=== PATIENT | male | born 1975 | race African-American/Black ===

== ENCOUNTER 2017-06-22 19:39 | Emergency (ER) | payer BC ==
[2017-06-22 20:00] LABS: #Basophils 0.1 thou/uL (0.0-0.2); #Eosinphils 0.1 thou/uL (0.0-0.7); #Lymphocytes 1.8 thou/uL (1.20-3.40); #Monocytes 0.4 thou/uL (0.11-0.59); #Neutrophils 3.4 thou/uL (1.40-6.50); %Basophils 1.9 % (0.0-1.0); %Eosinophils 2.1 % (0.0-10.0); %Lymphocytes 31.4 % (21.0-51.0); Hematocrit 44.1 % (42.0-52.0); Mean Platelet Volume 7.5 fL (7.4-10.4); Red Blood Cell (RBC) Count 5.18 mill/uL (4.70-6.10); White Blood Cell (WBC) Count 5.7 thou/uL (4.8-10.8)
[2017-06-22 20:22] LABS: ALT (SGPT) 22 U/L (8-55); AST (SGOT) 37 U/L (5-34); Alkaline Phosphatase 49 U/L (40-150); Anion Gap 15 mmol/L (10-20); BUN (Urea Nitrogen) 16 mg/dL (8.9-20.6); Bilirubin, Total 0.8 mg/dL (0.2-1.2); Calc. Creatinine Clearance 0 mL/min (70-130); Calcium 9.8 mg/dL (7.8-10.44); Carbon Dioxide 26 mmol/L (22-29); Chloride 103 mmol/L (98-107); Estimated GFR-MDRD 87; Globulin 4.2 g/dL (2.4-3.5); Protein, Total 8.5 g/dL (6.0-8.3)
[2017-06-22 20:33] LABS: Troponin I Less than 0.010 ng/mL (< 0.028)
== END 2017-06-22 20:53 | disposition home or self-care (01) ==
LOC: ERS 19:39
DX: E87.8 Other disorders of electrolyte and fluid balance, not elsewhere classified (principal); I10 Essential (primary) hypertension; F17.210 Nicotine dependence, cigarettes, uncomplicated
CPT/HCPCS: 36415; 80053; 84484; 85025; 93005

== ENCOUNTER 2017-06-25 16:59 | Emergency (ER) | payer BC | END 2017-06-25 19:48 | disposition home or self-care (01) | LOC: ERS 16:59 | DX: S39.012A Strain of muscle, fascia and tendon of lower back, initial encounter (principal); I10 Essential (primary) hypertension; F17.210 Nicotine dependence, cigarettes, uncomplicated; X50.9XXA Other and unspecified overexertion or strenuous movements or postures, initial encounter | CPT/HCPCS: 99283 ==

== ENCOUNTER 2022-07-19 21:58 | Emergency (ER) | payer BC | END 2022-07-19 22:28 | disposition home or self-care (01) | LOC: ERS 21:58 | DX: I10 Essential (primary) hypertension (principal); F17.210 Nicotine dependence, cigarettes, uncomplicated; Z79.899 Other long term (current) drug therapy | CPT/HCPCS: 99283 ==

== ENCOUNTER 2022-11-13 18:30 | Emergency (ER) | payer BC | END 2022-11-13 21:05 | disposition home or self-care (01) | LOC: ERS 18:30 | DX: M25.562 Pain in left knee (principal) ==

== ENCOUNTER 2023-05-05 01:33 | Emergency (ER) | payer BC ==
[2023-05-05] MEDS ORDERED: Ketorolac Tromethamine 30 MG/ML VIAL ONE (02:45)
== END 2023-05-05 02:59 | disposition home or self-care (01) ==
LOC: ERS 01:33
DX: M76.52 Patellar tendinitis, left knee (principal); M17.12 Unilateral primary osteoarthritis, left knee; I10 Essential (primary) hypertension; F17.210 Nicotine dependence, cigarettes, uncomplicated
CPT/HCPCS: 96372; J1885

== ENCOUNTER 2023-11-13 17:51 | Emergency (ER) | payer BC ==
[2023-11-13] MEDS ORDERED: Ibuprofen 800 MG TAB ONE (19:05)
== END 2023-11-13 20:06 | disposition home or self-care (01) ==
LOC: ERS 17:51
DX: S90.02XA Contusion of left ankle, initial encounter (principal); I10 Essential (primary) hypertension; F17.210 Nicotine dependence, cigarettes, uncomplicated; X58.XXXA Exposure to other specified factors, initial encounter

== ENCOUNTER 2024-03-10 14:26 | Emergency (ER) | payer BC ==
[2024-03-10] MEDS ORDERED: Ketorolac Tromethamine 30 MG (1 mL) VIAL ONE (15:47)
== END 2024-03-10 16:02 | disposition home or self-care (01) ==
LOC: ERS 14:26
DX: M25.561 Pain in right knee (principal); I10 Essential (primary) hypertension; M10.9 Gout, unspecified; F17.210 Nicotine dependence, cigarettes, uncomplicated
CPT/HCPCS: 96372; J1885

== ENCOUNTER 2024-09-01 20:46 | Emergency (ER) | payer BC | END 2024-09-02 00:05 | disposition home or self-care (01) | LOC: ERS 20:46 | DX: M54.50 Low back pain, unspecified (principal); I10 Essential (primary) hypertension; F17.210 Nicotine dependence, cigarettes, uncomplicated | CPT/HCPCS: 99282 ==

== ENCOUNTER 2025-06-15 22:19 | Emergency (ER) | payer BC ==
[2025-06-16] MEDS ORDERED: Ketorolac Tromethamine 30 MG (1 mL) VIAL ONE (00:15)
== END 2025-06-16 00:24 | disposition home or self-care (01) ==
LOC: ERS 22:19
DX: M17.9 Osteoarthritis of knee, unspecified (principal); I10 Essential (primary) hypertension; F17.210 Nicotine dependence, cigarettes, uncomplicated
CPT/HCPCS: 96372; 99283; J1885